=== PATIENT | female | born 1940 | race Caucasian/White ===

== ENCOUNTER → 2016-08-21 | Day surgery (SDC) | payer MEDICARE ==
[~2016-08-21] VITALS: Ht 165.1 cm; Wt 79.5 kg
[~2016-08-21] MED LIST: ASPI1TAB69 PO; CYCLOPENTOLATE HCL 1% OPHT SOLN 2 ML BTL ONE; E-20CAP PO; FLURBIPROFEN 0.03% OPHT SOLN 2.5 ML BTL ONE; LIDOCAINE HCL 1% 30 ML VIAL ONE; LIDOCAINE HCL 2% JELLY 5 ML SYRINGE LEFT EYE ONE; LIDOCAINE HCL 2% JELLY 5 ML SYRINGE ONE; LORA10TA PO; MIDAZOLAM HCL 2 MG/2 ML VIAL ONE; MULT-65 PO; OXYB5TAB10 PO; OXYGENTANK NAS.CANULA; PHENYLEPHRINE HCL 10% OPTH SOLN 5 ML BTL ONE; PROPARACAINE HCL 0.5% OPHT SOLN 15 ML BTL LEFT EYE ONE; PROPARACAINE HCL 0.5% OPHT SOLN 15 ML BTL ONE; SODIUM CHLORID 0.9% 500 ML INJ 500 ML ONE; SPIRCAP INH; TROPICAMIDE 1% OPHT SOLN 15 ML BTL ONE; VENTAER INH; VITA100T PO
[2016-08-21] MEDS: TROPICAMIDE 1% OPHT SOLN 15 ML BTL LEFT EYE SCH ×4 (07:20→07:35)
[2016-08-21] MEDS: FLURBIPROFEN 0.03% OPHT SOLN 2.5 ML BTL LEFT EYE SCH ×4 (07:20→07:35)
[2016-08-21] MEDS: CYCLOPENTOLATE HCL 1% OPHT SOLN 2 ML BTL LEFT EYE SCH ×4 (07:20→07:35)
[2016-08-21] MEDS: PHENYLEPHRINE HCL 10% OPTH SOLN 5 ML BTL LEFT EYE SCH ×4 (07:20→07:35)
[2016-08-21 07:21] VITALS: BP 152/84; PULSE 100; RESP 24; TEMP 97.6; O2SAT 88
[2016-08-21] MEDS: TOBRAMYCIN/DEXAMETHASONE OPTH OINT 3.5 GM TUBE ONE ×2 (08:26→08:35)
[2016-08-21 08:45] VITALS: TEMP 97.3
[2016-08-21 09:15] VITALS: BP 145/64; PULSE 93; RESP 14; O2SAT 97
--- NOTE | 2016-08-21 10:13 | MP ---
cc: JAMAR CALLES M.D. [facility] #[id number] DATE OF SURGERY 08/21/2016 PREOPERATIVE DIAGNOSIS Visually significant cataract left eye. POSTOPERATIVE DIAGNOSIS Visually significant cataract left eye. OPERATION Phacoemulsification with posterior chamber lens implantation, left eye. SURGEON Jamar Calles MD ANESTHESIA Topical with MAC COMPLICATIONS None PROCEDURE After informed consent was obtained, the patient was brought into the operative suite and placed on appropriate monitors by the Anesthesia Service. The patient had been given dilating drops and topical lidocaine gel in the holding area. The patient's operative eye was then prepped and draped in the usual sterile fashion. A wire lid speculum was placed. Further 2% lidocaine was then dropped on the cornea prior to beginning the procedure. A paracentesis incision was made in the peripheral cornea with a 1 mm brian keratome. The anterior chamber was filled with viscoelastic. The anterior chamber was then entered through a stepped, clear corneal incision using a sharp 3 mm brian keratome. A circular tear capsulorrhexis was then made with a bent needle cystitome. Following hydrodissection of the lens nucleus with balance saline, phacoemulsification of the nucleus was performed using a modified chopping technique. The remaining cortex was removed with irrigation/aspiration. The prior two procedures were both performed using the handpieces of the [employer] phaco unit. The capsular bag was then filled with viscoelastic. The intraocular lens was then injected into the capsular bag and positioned. The type of intraocular lens and its power can be found elsewhere in this chart. The remaining viscoelastic was then removed from the anterior chamber with the IA handpiece. The anterior chamber was reformed with balanced saline. The wound was then closed securely with stromal hydration. It was found to be watertight to an intraocular pressure of at least 30 mmHg by palpation. A small amount of balanced salt solution was then removed through the paracentesis site and the intraocular pressure at the end of the case was approximately 20 by palpation. All drapes were then removed. TobraDex ointment was then placed in the eye, which was closed beneath a semi-pressure patch dressing. The patient tolerated this procedure well and left the operating room awake and alert. The patient is to follow-up in my office in the morning. MD TERRI Leach/MELBA /10:06 AM /10:12 AM
== END | disposition home or self-care (01) ==
LOC: CSDC 06:43
PROVIDERS: ATTEND Optometrist Occupational Vision
DX: H25.12 Age-related nuclear cataract, left eye (principal)
CPT/HCPCS: 00142; 66984; J2250; J7040; V2632

== ENCOUNTER → 2016-10-02 | Day surgery (SDC) | payer MEDICARE ==
[~2016-10-02] VITALS: Ht 165.1 cm; Wt 81.0 kg
[~2016-10-02] MED LIST changes: -LIDOCAINE HCL 2% JELLY 5 ML SYRINGE LEFT EYE ONE; -PROPARACAINE HCL 0.5% OPHT SOLN 15 ML BTL LEFT EYE ONE
[2016-10-02 07:15] VITALS: BP 136/81; PULSE 96; RESP 18; TEMP 97.8; O2SAT 100
[2016-10-02] MEDS: TOBRAMYCIN/DEXAMETHASONE OPTH OINT 3.5 GM TUBE ONE ×2 (08:53→08:57)
[2016-10-02 09:35] VITALS: BP 145/72; PULSE 76; RESP 16; TEMP 94.9; O2SAT 97
--- NOTE | 2016-10-03 08:57 | MP ---
cc: JAMAR CALLES M.D. [facility] #[id number] DATE OF SURGERY 10/02/2016 PREOPERATIVE DIAGNOSIS Visually significant cataract right eye. POSTOPERATIVE DIAGNOSIS Visually significant cataract right eye. OPERATION Phacoemulsification with posterior chamber lens implantation, right eye. SURGEON Jamar Calles MD ANESTHESIA Topical with MAC COMPLICATIONS None PROCEDURE After informed consent was obtained, the patient was brought into the operative suite and placed on appropriate monitors by the Anesthesia Service. The patient had been given dilating drops and topical lidocaine gel in the holding area. The patient's operative eye was then prepped and draped in the usual sterile fashion. A wire lid speculum was placed. Further 2% lidocaine was then dropped on the cornea prior to beginning the procedure. A paracentesis incision was made in the peripheral cornea with a 1 mm brian keratome. The anterior chamber was filled with viscoelastic. The anterior chamber was then entered through a stepped, clear corneal incision using a sharp 3 mm brian keratome. A circular tear capsulorrhexis was then made with a bent needle cystitome. Following hydrodissection of the lens nucleus with balance saline, phacoemulsification of the nucleus was performed using a modified chopping technique. The remaining cortex was removed with irrigation/aspiration. The prior two procedures were both performed using the handpieces of the [employer] phaco unit. The capsular bag was then filled with viscoelastic. The intraocular lens was then injected into the capsular bag and positioned. The type of intraocular lens and its power can be found elsewhere in this chart. The remaining viscoelastic was then removed from the anterior chamber with the IA handpiece. The anterior chamber was reformed with balanced saline. The wound was then closed securely with stromal hydration. It was found to be watertight to an intraocular pressure of at least 30 mmHg by palpation. A small amount of balanced salt solution was then removed through the paracentesis site and the intraocular pressure at the end of the case was approximately 20 by palpation. All drapes were then removed. TobraDex ointment was then placed in the eye, which was closed beneath a semi-pressure patch dressing. The patient tolerated this procedure well and left the operating room awake and alert. The patient is to follow-up in my office in the morning. MD TERRI Leach/MLEBA /10:13 AM /8:54 AM
== END | disposition home or self-care (01) ==
LOC: CSDC 06:41
PROVIDERS: ATTEND Optometrist Occupational Vision
DX: H25.11 Age-related nuclear cataract, right eye (principal)
CPT/HCPCS: 00142; 66984; J2250; J7040; V2632

== ENCOUNTER 2017-01-17 14:07 | Emergency (ER) | payer MEDICARE ==
[~2017-01-17 14:07] MED LIST changes: -CYCLOPENTOLATE HCL 1% OPHT SOLN 2 ML BTL ONE; -FLURBIPROFEN 0.03% OPHT SOLN 2.5 ML BTL ONE; -LIDOCAINE HCL 1% 30 ML VIAL ONE; -LIDOCAINE HCL 2% JELLY 5 ML SYRINGE ONE; -MIDAZOLAM HCL 2 MG/2 ML VIAL ONE; -PHENYLEPHRINE HCL 10% OPTH SOLN 5 ML BTL ONE; -PROPARACAINE HCL 0.5% OPHT SOLN 15 ML BTL ONE; -SODIUM CHLORID 0.9% 500 ML INJ 500 ML ONE; -TROPICAMIDE 1% OPHT SOLN 15 ML BTL ONE
[2017-01-17 14:19] VITALS: BP 166/66; PULSE 94; RESP 20; TEMP 98.2; O2SAT 93
--- NOTE | 2017-01-17 14:32 | PD ---
HPI Chief Complaint: BLEEDING SKIN TEAR Time Seen by Provider: 14:08 Travel History International Travel<30 days: No Contact w/Intl Traveler<30days: No Traveled to known affect area: No History of Present Illness HPI 76-year-old female brought in by paramedics for evaluation of a bleeding wound on her left lower extremity. Patient reports she sustained a skin tear to her left lower extremity 5 days ago. She reports 5 days ago she was getting in to her granddaughter's car and she sustained a cut by the car door on her left lower extremity. She denies falling. No head injury. No LOC. Not anticoagulated. Today while she was doing a dressing change the area began to bleed and she was unable to bend forward because of back pain to apply pressure to the wound. She then called 911 to bring her to the emergency department for evaluation of the wound. She denies any pain. The bleeding has stopped upon arrival to the ED. Patient reports past history of COPD she wears O2 at home. No other medical complaints. [facility] Past Medical History Narrative Medical Significant for COPD. Arthritis: No Asthma: No Autoimmune Disease: No Blood Disorders: No Heart Rhythm Problems: No Cancer: No Cardiovascular Problems: No High Cholesterol: No Chemotherapy: No Chest Pain: No Congestive Heart Failure: No COPD: Yes Cerebrovascular Accident: No Diabetes: No Diminished Hearing: No Endocrine: No GERD: No Glaucoma: No Genitourinary: No Headaches: No Hepatitis: No Hiatal Hernia: No Hypertension: No Immune Disorder: No Kidney Stones: No Musculoskeletal: No Neurologic: No Psychiatric: No Reproductive: No Respiratory: Yes (COPD, wears 02L PRN) Immunizations Current: Yes Migraines: No Myocardial Infarction: No Radiation Therapy: No Renal Failure: No Seizures: No Sickle Cell Disease: No Sleep Apnea: No Thyroid Disease: No : 1 Para: 1 Past Surgical History Abdominal Surgery: No AICD: No Cardiac Surgery: No Cholecystectomy: No Ear Surgery: No Endocrine Surgery: No Eye Surgery: Yes (LEFT CATARACT) Genitourinary Surgery: No Gynecologic Surgery: Yes (HYSTERECTOMY) Hysterectomy: Yes Insulin Pump: No Joint Replacement: No Neurologic Surgery: Yes (SPINAL TUMOR SURGERY) Oral Surgery: No Pacemaker: No Thoracic Surgery: No Other Surgery: Yes (TOMOR REMOVED FROM SPINE) Social History Alcohol Use: No Tobacco Use: No (QUIT 25 YRS AGO) Substance Use: No Allergies-Medications (Allergen,Severity, Reaction): Coded Allergies: Morphine (Verified Adverse Reaction, Unknown, 01/17/17) states it does not work Reported Meds & Prescriptions Reported Meds & Active Scripts Active Reported Spiriva Handihaler (Tiotropium Inh) 18 Mcg Cap 18 Mcg INH DAILY 1 capsule = 18 mcg Oxygen tank (Oxygen) 1 Ea Tank 2 Liter HUGO.CANULA HS Oxygen Concentrator Portable Gaseous 2 L/min via Nasal Cannula Continuous For 99 months Ventolin Hfa 18 GM Inh (Albuterol Sulfate) 90 Mcg/Act Aer 2 Puff INH Q4-6H PRN Review of Systems Except as stated in HPI: all other systems reviewed are Neg Physical Exam Narrative GENERAL: Alert, well-appearing elderly female. SKIN: 5 cm shallow skin tear left lower extremity anterior aspect. No bleeding at time of exam. No evidence of infection. HEAD: Atraumatic. Normocephalic. EYES: Pupils equal and round. No scleral icterus. No injection or drainage. ENT: No nasal bleeding or discharge. Mucous membranes pink and moist. NECK: Trachea midline. No JVD. CARDIOVASCULAR: Regular rate and rhythm. No murmur appreciated. RESPIRATORY: No accessory muscle use. Clear to auscultation. Breath sounds equal bilaterally. GASTROINTESTINAL: Abdomen soft, non-tender, nondistended. Hepatic and splenic margins not palpable. MUSCULOSKELETAL: No obvious deformities. No clubbing. No cyanosis. No edema. 2+ distal pulses NEUROLOGICAL: Awake and alert. No obvious cranial nerve deficits. Motor grossly within normal limits. Normal speech. PSYCHIATRIC: Appropriate mood and affect; insight and judgment normal. Data Data Last Documented VS Vital Signs Date Time Temp Pulse Resp B/P Pulse Ox O2 Delivery O2 Flow Rate FiO2 01/17/17 14:19 98.2 94 20 166/66 93 MDM Medical Decision Making Medical Screen Exam Complete: Yes Emergency Medical Condition: Yes Differential Diagnosis Skin tear, abrasion, laceration Narrative Course 76-year-old female brought in for evaluation of a bleeding left lower extremity wound. Patient reports she sustained a skin tear after getting into her granddaughter's car 5 days ago. She reports today while doing a dressing change the wound began to bleed and she was unable to get the area to stop bleeding. Upon arrival to the ED the wound has stopped bleeding. Physical exam reveal shallow 5 cm skin tear to the left anterior lower extremity. The wound appears healthy there is no sign of infection. The patient is not anticoagulated. Patient was instructed to use Luis dressing with each dressing change to avoid bleeding episodes. Diagnosis Primary Impression: Skin tear of lower leg without complication Qualified Code: S81.812A - Skin tear of lower leg without complication, left, initial encounter Referrals: Primary Care Physician Additional Instructions: Apply nonstick dressing to the wound with each dressing change. If the wound begins to bleed with a dressing change attempt to apply firm pressure to the area for 10 minutes. If you're unable to get the area to stop bleeding return to the emergency department. Disposition: 01 DISCHARGE HOME Condition: Stable Jane Velasquez Jan 17, 2017 14:32
== END 2017-01-17 14:43 | disposition home or self-care (01) ==
LOC: PHEFT 14:07
DX: S81.812A Laceration without foreign body, left lower leg, initial encounter (principal); J44.9 Chronic obstructive pulmonary disease, unspecified; Z87.891 Personal history of nicotine dependence; W22.8XXA Striking against or struck by other objects, initial encounter; Y93.89 Activity, other specified; Y92.9 Unspecified place or not applicable; Y99.8 Other external cause status
CPT/HCPCS: 99283

== ENCOUNTER → 2017-01-21 | Outpatient (CLI) | payer MEDICARE ==
[~2017-01-21] MED LIST changes: -ASPI1TAB69 PO; -E-20CAP PO; -LORA10TA PO; -MULT-65 PO; -OXYB5TAB10 PO; -VITA100T PO
== END ==
LOC: HRSP 08:57
PROVIDERS: ATTEND Internal Medicine Pulmonary Disease
DX: J44.9 Chronic obstructive pulmonary disease, unspecified (principal)
CPT/HCPCS: 94620

== ENCOUNTER → 2017-12-28 | Outpatient (CLI) | payer MEDICARE ==
--- NOTE | 2017-12-29 12:03 | RSPPFT ---
DATE OF PROCEDURE: 12/28/17 COMMENTS: Spirometry with FVC of 1.4 predicted 2.7, FEV1 of 0.5 predicted 2.0, FEV1/FVC ratio 38% predicted 81%. Post-bronchodilator FVC increases to 1.7 and FEV1 to 0.6. DLCO is 29% of predicted. IMPRESSION: On the basis of the above, patient has a very severe obstructive lung defect with responsiveness to acutely inhaled bronchodilator. DLCO is decreased.
== END ==
LOC: HRSP 13:06
PROVIDERS: ATTEND Internal Medicine Pulmonary Disease
DX: J44.9 Chronic obstructive pulmonary disease, unspecified (principal)
CPT/HCPCS: 36600; 82805; 94060; 94618; 94729